=== PATIENT | male | born 1950 | race Caucasian/White ===

== ENCOUNTER 2018-06-09 20:38 | Inpatient (IN) | payer OTHER ==
[2018-06-09] MEDS ORDERED: SODIUM CHLORIDE 1,000 ML IV STA (20:58)
[2018-06-09] MEDS ORDERED: ONDANSETRON 4 MG/2 ML VIAL IVPUSH ONE (20:58)
--- NOTE | 2018-06-09 21:10 | PDOC ---
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 He states the pain started suddenly, is located generally to his low abdomen, and radiates to his lower back. He also c/o sweating, nausea , vomiting. He denies fever, diarrhea, chest pain, shortness of breath. Allergies - NKDA Admits to nicotine use. Admits to social etoh use. Denies every day etoh use. Denies illicit drug use. Past History - Past Medical History Allergies/Adverse Reactions: Allergies Allergy/AdvReac Type Severity Reaction Status Date / Time No Known Allergies Allergy Verified 06/09/18 20:56 - Suicide/Smoking/Psychosocial Hx Smoking History: Never smoked Have you smoked in the past 12 months: No Information on smoking cessation initiated: No Hx Alcohol Use: No Drug/Substance Use Hx: No Review of Systems - Review of Systems Able to Perform ROS?: Yes Comments:: 06/09/18 22:18 General: admits to sweats. denies fever, chills, generalized weakness. HEENT: denies sore throat, rhinorrhea, ear pain. Heart: denies chest pain, palpitations, syncope, lower extremity swelling, diaphoresis. Respiratory: denies shortness of breath, cough, sputum production, hematemesis. Abdomen: admits to abdominal pain, nausea, vomiting. denies diarrhea, constipation, blood in stool. : denies dysuria, increased urinary frequency, hematuria, urinary incontinence , flank pain. Back: admits to back pain. denies flank pain. Musculoskeletal: denies joint pain, muscle pain, joint swelling. Neurological: denies headache, dizziness, numbness, tingling, weakness. Skin: denies rash, laceration, abrasion. *Physical Exam - Vital Signs Last Vital Signs Temp Pulse Resp BP Pulse Ox 97.7 F 88 22 182/90 97 06/09/18 20:53 06/09/18 20:53 06/09/18 20:53 06/09/18 20:53 06/09/18 20:53 - Physical Exam Comments: 06/09/18 22:19 Appearance: appears in pain. actively vomiting. HEENT: head is normocephalic, atraumatic. EOMI. PERRLA. Neck: supple. Full ROM. Heart: regular rhythm. no murmurs, rubs or gallops. No pericardial friction rub. Lungs: clear to auscultation bilaterally. no crackles, rhonchi or wheezing. no stridor. Abdomen: soft. portuberant. generalized tenderness to palpation. umbilical hernia present, will reduce. normal bowel sounds. no rebound, guarding, masses. Back: CVA tenderness negative bilaterally. Extremities: Peripheral pulses intact and equal. No lower extremity edema. Neurological: Alert. Oriented x3. CN 2-12 grossly intact. Moves all four extremities. Heart Score/ECG Review - ECG Impressions Comment:: 06/10/18 01:02 Rate 84. Regular rhythm. Normal axis. Inferolateral ischemia, new as compared to EKG 04/11/18. ED Treatment Course - LABORATORY CBC & Chemistry Diagram: 06/09/18 21:51 06/09/18 21:51 Medical Decision Making - Medical Decision Making 06/09/18 22:19 67 year old male with PMH HTN, HLD, DM presenting to ED for lower abdominal pain starting today associated with N/V and diaphoresis. Pt actively vomiting, diaphoretic and appears in pain upon presentation. Morphine and Zofran ordered. Initial Vital Signs Temp Pulse Resp BP Pulse Ox 97.7 F 88 22 182/90 97 06/09/18 20:53 06/09/18 20:53 06/09/18 20:53 06/09/18 20:53 06/09/18 20:53 Afebrile. No tachycardia. Hypertensive. Pending labs, CT, EKG. 06/09/18 22:35 WBC 11.1 Cr 1.5 Electrolytes normal. 06/09/18 22:46 Lactate 3.6 Lipase normal Cardiac enzymes normal. 06/09/18 23:53 Pt reassessed. States he is feeling better. Pending UA. 06/09/18 23:56 CT report - 3 mm stone in the right UVJ, obstructing, mild right hydronephrosis. Flomax ordered. 06/10/18 00:41 UA 1+ blood, no evidence of UTI. Repeat lactate 2.2. 06/10/18 00:57 EKG shows inferolateral ischemic changes. ASA ordered. Repeat troponin ordered. Pt will be admitted for obstructive uropathy, lactic acidosis and inferolateral ischemic EKG changes. 06/10/18 01:12 I spoke with the admitting team, who states Dr. Umanzor will take over care for the patient. 06/10/18 04:04 Repeat Troponin negative. *DC/Admit/Observation/Transfer Diagnosis at time of Disposition: Nephrolithiasis - Discharge Dispostion Condition at time of disposition: Fair Decision to Admit order: Yes - Referrals - Patient Instructions - Post Discharge Activity
[2018-06-09] MEDS ORDERED: morphine CARPU-JECT 4 MG/1 ML DISP.SYRIN IVPUSH ONE ×2 (21:28→21:42)
[2018-06-09] MEDS ORDERED: MORPHINE SULFATE 2 MG/ML VIAL ONE (21:44)
[2018-06-09] MEDS ORDERED: morphine SULFATE 4 MG/ML VIAL ONE (21:44)
[2018-06-09] MEDS ORDERED: ONDANSETRON 4 MG/2 ML VIAL ONE (21:44)
[2018-06-09 22:05] LABS: BASO % 0.5 % (0-2.0); EOS % 0.7 % (0-4.5); HEMOGLOBIN 16.3 GM/dL (11.7-16.9); LYMPH % 21.9 % (8-40); MCH 33.2 pg (25.7-33.7); MEAN CELL VOLUME 97.5 fl (80-96); MEAN PLT VOLUME 9.1 fl (7.5-11.1); MONO % 7.4 % (3.8-10.2); NEUT % 69.5 % (42.8-82.8); PLATELET COUNT 239 K/MM3 (134-434); RBC 4.92 M/mm3 (4.00-5.60); RDW 13.8 % (11.9-15.9); WHITE BLOOD COUNT 11.1 K/mm3 (4.0-10.0)
[2018-06-09 22:20] LABS: INR 0.98 (0.83-1.09); PROTHROMBIN TIME (PATIENT) 11.1 SEC (9.7-13.0)
[2018-06-09 22:23] LABS: ACTIVATED PTT 22.6 SECONDS (25.2-36.5)
[2018-06-09 22:29] LABS: ALBUMIN 4.5 g/dl (3.4-5.0); ALK PHOS 79 U/L (45-117); AMYLASE 17 U/L (25-115); ANION GAP 10 MMOL/L (8-16); BILIRUBIN,TOTAL 0.4 mg/dL (0.2-1.0); BLOOD UREA NITROGEN 18 mg/dL (7-18); CALCIUM 9.1 mg/dL (8.5-10.1); CHLORIDE 107 mmol/L (98-107); CO2 23 mmol/L (21-32); CREATININE 1.5 mg/dL (0.7-1.3); GLUCOSE,RANDOM 140 mg/dL (74-106); LIPASE 184 U/L (73-393); POTASSIUM 3.9 mmol/L (3.5-5.1); SGOT/AST 17 U/L (15-37); SGPT/ALT 23 U/L (12-78); SODIUM 140 mmol/L (136-145); TOT PROT 8.6 g/dl (6.4-8.2)
--- NOTE | 2018-06-09 23:52 | PDOC ---
Attending Attestation - HPI HPI: 06/10/18 00:10 Patient is a 67 year old male with a significant past medical history of DM, HTN , HLD who presents to the ED with complaints of superpubic pain that began earlier today. Patient reports experiencing sudden superpubic pain that he states radiates to his lower back bilaterally and has increased in intensity over time, prompting him to come into the ED for further evaluation. He reports experiencing associated symptoms of nausea, vomiting, abdominal distention, and increased sweating. Denies chest pain, Sob. Denies contact with sick individuals, out of state travelling. Denies fevers, chills. Denies dysuria, hematuria. Denies constipation, diarrhea. Denies any other symptoms. Allergies: None Social history: No smoking. No illicit drugs. No alcohol. Surgical history: None PMD: None - Physicial Exam PE: 06/10/18 00:10 GENERAL: +Diaphoretic. +Acute distress. Awake, alert, and fully oriented, HEAD: No signs of trauma EYES: PERRLA, EOMI, sclera anicteric, conjunctiva clear ENT: Auricles normal inspection, hearing grossly normal, nares patent, oropharynx clear without exudates. Moist mucosa NECK: Normal ROM, supple, no lymphadenopathy, JVD, or masses LUNGS: Breath sounds equal, clear to auscultation bilaterally. No wheezes, and no crackles HEART: Regular rate and rhythm, normal S1 and S2, no murmurs, rubs or gallops ABDOMEN: +Left lower quadrant tenderness. +superpubic tenderness. +Right lower quadrant tenderness. +CVA tenderness. +Reducible umbilical hernia. Soft, normoactive bowel sounds. No guarding, no rebound. EXTREMITIES: Normal range of motion, no edema. No clubbing or cyanosis. No cords, erythema, or tenderness NEUROLOGICAL: Cranial nerves II through XII grossly intact. Normal speech, normal gait SKIN: Warm, Dry, normal turgor, no rashes or lesions noted. <Venu Escobar - Last Filed: 06/10/18 00:10> - Resident Resident Name: Rachael Henderson - ED Attending Attestation I have performed the following: I have examined & evaluated the patient, The case was reviewed & discussed with the resident, I agree w/resident's findings & plan, Exceptions are as noted - Medical Decision Making 06/09/18 23:50 67yo male with acute onset of abd pain - lower abd and R flank -pt colicky pain -pt with n/v -pt denies trauma -has an umbilical hernia that is reducible -pt is diaphoretic upon arrival -concern for renal colic -bedside ultrasound shows hydro to R kidney -2 iv lines placed, labs sent -will medicate for nausea and pain and will obtain ct abd/pelvis 06/09/18 23:56 pt with 3mm stone at R UVJ causing mod hydro to R pending ua will add flomax pain improved 06/10/18 00:52 new ekg changes will add trop to labs 06/10/18 00:52 repeat lactate is much improved however given ekg changes and acute amount of pain when presenting/obs uropathy will place in obs for further eval pt agrees to stay for further eval 06/10/18 01:23 trop negative repeat pending resident discussed the case with JIL who accepts the patient to service <Barbara Butts - Last Filed: 06/10/18 01:24> Heart Score/ECG Review - ECG Intrepretation Comment:: 06/10/18 00:51 sinus at 84, nl axis, st depression and t wave inversions to inferiolateral which are new compared to old ekg from 04/27 <Barbara Butts - Last Filed: 06/10/18 01:24>
[2018-06-09] MEDS ORDERED: TAMSULOSIN HCL 0.4 MG CAP.ER.24H (FP) PO ONE (23:56)
[2018-06-10 00:24] LABS: URINE APPEARANCE CLEAR; URINE BILIRUBIN NEGATIVE (<2.0 mg/dL); URINE COLOR STRAW; URINE GLUCOSE (UA) NEGATIVE (NEGATIVE); URINE KETONE NEGATIVE (NEGATIVE); URINE LEUK ESTERASE NEGATIVE (NEGATIVE); URINE NITRITE NEGATIVE (NEGATIVE); URINE PROTEIN NEGATIVE (NEGATIVE); URINE UROBILINOGEN NEGATIVE mg/dL (0.2-1.0)
[2018-06-10 00:39] LABS: EPI CELLS RARE /HPF (FEW); URINE MUCUS RARE
[2018-06-10] MEDS ORDERED: ASPIRIN 81 MG CHEWABLE TABLETS PO ONE (00:50)
[2018-06-10] MEDS ORDERED: TAMSULOSIN HCL 0.4 MG CAP.ER.24H (FP) ONE (00:51)
[2018-06-10] MEDS ORDERED: ASPIRIN 325 MG TABLET ONE (01:17)
--- NOTE | 2018-06-10 02:21 | PN ---
Teaching Attending Note Name of Resident: Checo Bolanos ATTENDING PHYSICIAN STATEMENT I saw and evaluated the patient. I reviewed the resident's note and discussed the case with the resident. I agree with the resident's findings and plan as documented. SUBJECTIVE: Patient is a 67 year old male with PMH DM, HTN, HLD presenting to ER for lower abdominal pain starting today. He states the pain started suddenly, is located generally to his low abdomen, and radiates to his lower back. He also has sweating, nausea, vomiting. He denies fever, diarrhea, chest pain, shortness of breath. CT abdomen shows obstructing right kidney stone on UPJ and hydronephrosis. OBJECTIVE: Alert and in pain Vital Signs Period Temp Pulse Resp BP Sys/Alfonso Pulse Ox Last 24 Hr 97.7 F 88 22 182/90 97 HEENT: No Jaundice, eye redness or discharge, PERRLA, EOMI. Normocephalic, atraumatic. External ears are normal and hearing is grossly intact. No nasal discharge. Neck: Supple, nontender. No palpable adenopathy or thyromegaly. No JVD Chest: Good effort. Clear to auscultation and percussion. Heart: Regular. No S3, rub or murmur Abdomen: Not distended, soft, diffuse tenderness and no HSM. No rebound or guarding. Normoactive bowel sounds. Ext: Peripheral pulses intact. No leg edema. Skin: Warm and dry. No petechiae, rash or ecchymosis. Neuro: Alert. Oriented x3. CN 2-12 grossly intact. Sensation grossly intact in all four extremities and DTR are symmetric. Abnormal Lab Results 06/09/18 06/09/18 06/09/18 21:51 21:51 21:51 WBC 11.1 H MCV 97.5 H PTT (Actin FS) 22.6 L Creatinine 1.5 H Random Glucose 140 H Lactic Acid Total Protein 8.6 H Total Amylase 17 L Urine Blood 06/09/18 06/10/18 06/10/18 21:51 00:10 00:10 WBC MCV PTT (Actin FS) Creatinine Random Glucose Lactic Acid 3.6 H* 2.2 H* Total Protein Total Amylase Urine Blood 1+ H ASSESSMENT AND PLAN: 1. Right Renal Colic with obstruction and hydronephrosis - Will use IV morphine to control pain, give flomax, IV NS and trend lactic acid level. Though no pyuria, will treat with IV Rocephin pending blood and urine culture. Urology consult. Will obtain serial EKG and troponin to rule out ACS in view of significant T wave changes on EKG. 2. DM - For now, we will hold the home diabetes drugs and implement sliding scale insulin regimen. Provide comprehensive diabetes care with patient teaching and counseling about the importance of euglycemia, eye care and foot care. 3. Obesity - Will provide patient all the necessary assistance , counseling and positive reinforcement to facilitate weight loss. Consult life skills coach. 4. DVT prophylaxis - Heparin 5000u sq tid. 5. Advance directives - Full code
[2018-06-10] MEDS ORDERED: ACETAMINOPHEN 325 MG TABLET (FP) PO PRN (03:58)
[2018-06-10] MEDS ORDERED: MORPHINE SULFATE 2 MG/ML VIAL IVPUSH PRN (03:58)
[2018-06-10] MEDS ORDERED: SODIUM CHLORIDE 0.45% 1,000 ML IV SCH (04:00)
--- NOTE | 2018-06-10 04:33 | HP ---
CHIEF COMPLAINT: Lower abdominal pain PCP: Adore Gonzalez NP HISTORY OF PRESENT ILLNESS: The patient is Turkish speaking; the following history was obtained with the help of [employer] stretch box tender #[id number]. The patient is a 67 yo m w/ PMH DM, HTN, HLD who was BIBEMS from home c/o a 1 day history of lower abdominal and back pain associated with nausea and vomiting. The patient states that he experienced an acute onset lower abdominal pain starting today. The pain is dull, 10/10 in intensity, and radiates to the center of his lower back. There are no exacerbating or alleviating factors. This pain was associated with nausea and NBNB vomiting. Patient stats he had a similar episode of this pain 1 year ago and was treated at [facility]. The patient states that he was given pain pills and sent home. The patient's medical record also shows multiple encouters for overactive bladder, but the patient does not recall these. Patient denies chest pain, SOB, fevers, chills, diarrhea, constipation. ER course was notable for: (1) Trop negative x2 (2) EKG showing ST depressions in 2, 3 avf; t wave inversions in lateral and anterior leads (3) Recent Travel: none PAST MEDICAL HISTORY: see HPI PAST SURGICAL HISTORY: Hernia repair right shoulder Social History: Smoking: denies Alcohol: denies Drugs: denies Family History: non-contributory Allergies No Known Allergies Allergy (Verified 06/09/18 20:56) HOME MEDICATIONS: REVIEW OF SYSTEMS CONSTITUTIONAL: Absent: fever, chills, diaphoresis, generalized weakness, malaise, loss of appetite, weight change HEENT: Absent: rhinorrhea, nasal congestion, throat pain, throat swelling, difficulty swallowing, mouth swelling, ear pain, eye pain, visual changes CARDIOVASCULAR: Absent: chest pain, syncope, palpitations, irregular heart rate, lightheadedness , peripheral edema RESPIRATORY: Absent: cough, shortness of breath, dyspnea with exertion, orthopnea, wheezing, stridor, hemoptysis GASTROINTESTINAL: Absent: abdominal distension, diarrhea, constipation, melena, hematochezia GENITOURINARY: Absent: dysuria, frequency, urgency, hesitancy, hematuria, genital pain MUSCULOSKELETAL: Absent: myalgia, arthralgia, joint swelling, back pain, neck pain SKIN: Absent: rash, itching, pallor HEMATOLOGIC/IMMUNOLOGIC: Absent: easy bleeding, easy bruising, lymphadenopathy, frequent infections ENDOCRINE: Absent: unexplained weight gain, unexplained weight loss, heat intolerance, cold intolerance NEUROLOGIC: Absent: headache, focal weakness or paresthesias, dizziness, unsteady gait, seizure, mental status changes, bladder or bowel incontinence PSYCHIATRIC: Absent: anxiety, depression, suicidal or homicidal ideation, hallucinations. PHYSICAL EXAMINATION Vital Signs - 24 hr 06/09/18 06/10/18 20:53 04:09 Temperature 97.7 F Pulse Rate 88 Pulse Rate [ 77 Right] Respiratory 22 18 Rate Blood Pressure 182/90 Blood Pressure 157/86 [Left Arm] O2 Sat by Pulse 97 99 Oximetry (%) GENERAL: Awake, alert, and fully oriented, in no acute distress. HEAD: Normal with no signs of trauma. EYES: Pupils equal, round and reactive to light, extraocular movements intact, sclera anicteric, conjunctiva clear. No lid lag. EARS, NOSE, THROAT: Ears normal, nares patent, oropharynx clear without exudates. Moist mucous membranes. NECK: Normal range of motion, supple without lymphadenopathy, JVD, or masses. LUNGS: Breath sounds equal, clear to auscultation bilaterally. No wheezes, and no crackles. No accessory muscle use. HEART: Regular rate and rhythm, normal S1 and S2 without murmur, rub or gallop. ABDOMEN: Soft, nontender, not distended, normoactive bowel sounds, no guarding, no rebound, no masses. Suprapubic tenderness elicited. Right sided CVA present. LOWER EXTREMITIES: 2+ pulses, warm, well-perfused. No calf tenderness. No peripheral edema. NEUROLOGICAL: Cranial nerves II-X intact. Normal speech. PSYCHIATRIC: Cooperative. Good eye contact. Appropriate mood and affect. SKIN: Warm, dry, normal turgor, no rashes or lesions noted, normal capillary refill. Laboratory Results - last 24 hr 06/09/18 06/09/18 06/09/18 21:51 21:51 21:51 WBC 11.1 H RBC 4.92 Hgb 16.3 Hct 48.0 MCV 97.5 H MCH 33.2 MCHC 34.0 RDW 13.8 Plt Count 239 MPV 9.1 Absolute Neuts (auto) 7.7 Neutrophils % 69.5 Lymphocytes % 21.9 Monocytes % 7.4 Eosinophils % 0.7 Basophils % 0.5 Nucleated RBC % 0 PT with INR 11.10 INR 0.98 PTT (Actin FS) 22.6 L Sodium 140 Potassium 3.9 Chloride 107 Carbon Dioxide 23 Anion Gap 10 BUN 18 Creatinine 1.5 H Creat Clearance w eGFR 46.82 Random Glucose 140 H Lactic Acid Calcium 9.1 Total Bilirubin 0.4 AST 17 ALT 23 Alkaline Phosphatase 79 Creatine Kinase 112 Troponin I < 0.02 Total Protein 8.6 H Albumin 4.5 Total Amylase 17 L Lipase 184 Urine Color Urine Appearance Urine pH Ur Specific Warren Urine Protein Urine Glucose (UA) Urine Ketones Urine Blood Urine Nitrite Urine Bilirubin Urine Urobilinogen Ur Leukocyte Esterase Urine WBC (Auto) Urine RBC (Auto) Ur Epithelial Cells Urine Mucus Anti-A Titer Blood Type Antibody Screen 06/09/18 06/09/18 06/10/18 21:51 21:51 00:10 WBC RBC Hgb Hct MCV MCH MCHC RDW Plt Count MPV Absolute Neuts (auto) Neutrophils % Lymphocytes % Monocytes % Eosinophils % Basophils % Nucleated RBC % PT with INR INR PTT (Actin FS) Sodium Potassium Chloride Carbon Dioxide Anion Gap BUN Creatinine Creat Clearance w eGFR Random Glucose Lactic Acid 3.6 H* Calcium Total Bilirubin AST ALT Alkaline Phosphatase Creatine Kinase Troponin I Total Protein Albumin Total Amylase Lipase Urine Color Straw Urine Appearance Clear Urine pH 6.0 Ur Specific Warren 1.010 Urine Protein Negative Urine Glucose (UA) Negative Urine Ketones Negative Urine Blood 1+ H Urine Nitrite Negative Urine Bilirubin Negative Urine Urobilinogen Negative Ur Leukocyte Esterase Negative Urine WBC (Auto) <1 Urine RBC (Auto) 1 Ur Epithelial Cells Rare Urine Mucus Rare Anti-A Titer Cancelled Blood Type B POSITIVE Antibody Screen Negative 06/10/18 06/10/18 00:10 01:20 WBC RBC Hgb Hct MCV MCH MCHC RDW Plt Count MPV Absolute Neuts (auto) Neutrophils % Lymphocytes % Monocytes % Eosinophils % Basophils % Nucleated RBC % PT with INR INR PTT (Actin FS) Sodium Potassium Chloride Carbon Dioxide Anion Gap BUN Creatinine Creat Clearance w eGFR Random Glucose Lactic Acid 2.2 H* Calcium Total Bilirubin AST ALT Alkaline Phosphatase Creatine Kinase 110 Troponin I < 0.02 Total Protein Albumin Total Amylase Lipase Urine Color Urine Appearance Urine pH Ur Specific Warren Urine Protein Urine Glucose (UA) Urine Ketones Urine Blood Urine Nitrite Urine Bilirubin Urine Urobilinogen Ur Leukocyte Esterase Urine WBC (Auto) Urine RBC (Auto) Ur Epithelial Cells Urine Mucus Anti-A Titer Blood Type Antibody Screen ASSESSMENT/PLAN: The patient is a 67 yo f w/ PMH HTN, DM, HLD who came into the ED c/o a 1 day hx of lower abdominal pain found to have nephrolithiasis and EKG changes #Nephrolithiasis -urology consult; patient saw Dr. De León in the past -Flomax .4mg daily -pain control w/ tylenol and morphine -1/2 NS @ 75 x 1 bag. 1/2 NS to minimize hypertensive effect of saline -will give 1g rochephin daily due to patient's CVA tenderness, blood on UA and mild leukocytosis #EKG changes -troponin negative x2 -trend 3rd trop -rpt EKG -Echo in AM -cardiology consult #lactic acidosis -possibly 2/2 renal infection -downtrending; WNL on most recent rpt -c/w 1/2 NS @ 75 #RACHANA vs CKD -no baseline -c/w hydration and trend BMP in AM #HTN -patient unsure of home medications -start Norvasc 5mg in AM -verify home medications in AM #DM -BGM, ISS ACHS -verify home DM regimen in AM #FEN -1/2 NS @ 75 x 1bag -lytes WNL, monitor -diabetic diet #Prophy -heparin SQ 5k units TID #dispo -admit tele -medications to be verified with patient pharmacy Visit type - Emergency Visit Emergency Visit: Yes ED Registration Date: 06/10/18 Care time: The patient presented to the Emergency Department on the above date and was hospitalized for further evaluation of their emergent condition. - New Patient This patient is new to me today: Yes Date on this admission: 06/10/18 - Critical Care Critical Care patient: No Hospitalist Screening - Colonoscopy Questionnaire Colonoscopy Questionnaire: Colonoscopy Questionnaire - Patient: 50 - 75 years old and never had a screening colonoscopy: Unknown History of colon or rectal polyps, or CA: Unknown History of IBD, Crohn's disease or UC: Unknown History of abdominal radiation therapy as a child: Unknown - Relative: 1 with colon or rectal CA, or polyps at age 60 or younger: Unknown Colon or rectal CA diagnosed at age 45 or younger: Unknown Multiple relatives with colon or rectal CA: Unknown - Outcome: Screening Result: Negative Screen
[2018-06-10] MEDS ORDERED: CEFTRIAXONE 1 GM in DEXTROSE 5%-WATER - 50 ML IVPB SCH (05:00)
[2018-06-10] MEDS ORDERED: CEFTRIAXONE 1 GM in DEXTROSE 5%-WATER 100 ML IVPB SCH (05:15)
[2018-06-10] MEDS ORDERED: DEXTROSE 5%-WATER 100 ML IVPB ONE (05:20)
[2018-06-10] MEDS ORDERED: cefTRIAXone SODIUM 1 GM VIAL ONE (05:20)
[2018-06-10] MEDS: HEPARIN NA (PORCINE) 5,000 UNITS/ML 1ML VIAL SQ SCH ×2 (05:29→15:47)
[2018-06-10 05:55] VITALS: BMI 34.0
[2018-06-10] MEDS: INSULIN SLIDING SCALE (NOVOLOG) 1 VIAL SQ SCH ×3 (06:30→15:47)
[2018-06-10 07:40] LABS: BASO % 0.4 % (0-2.0); EOS % 0.4 % (0-4.5); HEMATOCRIT 43.5 % (35.4-49); HEMOGLOBIN 14.7 GM/dL (11.7-16.9); LYMPH % 25.6 % (8-40); MCH 32.6 pg (25.7-33.7); MCHC 33.8 g/dl (32.0-35.9); MEAN CELL VOLUME 96.7 fl (80-96); MEAN PLT VOLUME 9.1 fl (7.5-11.1); MONO % 8.3 % (3.8-10.2); NEUT % 65.3 % (42.8-82.8); PLATELET COUNT 200 K/MM3 (134-434); RDW 13.8 % (11.9-15.9); WHITE BLOOD COUNT 11.4 K/mm3 (4.0-10.0)
[2018-06-10 07:54] LABS: INR 1.03 (0.83-1.09); PROTHROMBIN TIME (PATIENT) 11.6 SEC (9.7-13.0)
--- NOTE | 2018-06-10 08:17 | CONSULT ---
Consult - text type - Consultation Consultation Note: cc: right hydronephrosis with acute renal insufficiency hpi: patient with history of right flank pain with nausea and vomiting. Patient denies fever or gross hematuria. Patient is in severe distress when the colic occurs. PE afeb; vss abd-right CVAT with suprapubic tendernesss ct scan reviewed creatinine 1.5 imp acute renal insufficiency right hydronephrosis with obstructing right ureteral stone plan patient is emergently scheduled for a right ureteroscopic stone basketing and stent
[2018-06-10 08:29] LABS: ANION GAP 11 MMOL/L (8-16); BLOOD UREA NITROGEN 16 mg/dL (7-18); CALCIUM 8.7 mg/dL (8.5-10.1); CHLORIDE 106 mmol/L (98-107); CO2 24 mmol/L (21-32); GLUCOSE,RANDOM 156 mg/dL (74-106); POTASSIUM 3.8 mmol/L (3.5-5.1); SODIUM 141 mmol/L (136-145)
[2018-06-10 08:35] LABS: CREATININE 0.9 mg/dL (0.7-1.3)
[2018-06-10] MEDS ORDERED: amLODIPine BESYLATE 5 MG TABLET (FP) PO SCH (10:00)
[2018-06-10] MEDS: TAMSULOSIN HCL 0.4 MG CAP.ER.24H (FP) PO SCH ×2 (10:20→17:35)
--- NOTE | 2018-06-10 10:29 | EKG ---
Test Reason : Blood Pressure : / mmHG Vent. Rate : 084 BPM Atrial Rate : 084 BPM P-R Int : 170 ms QRS Dur : 090 ms QT Int : 394 ms P-R-T Axes : 058 041 221 degrees QTc Int : 465 ms NORMAL SINUS RHYTHM PROLONGED QT ABNORMAL ECG NO PREVIOUS ECGS AVAILABLE Confirmed by GADIEL CHAMBERS, MIGUELINA ([id number]) on 06/10/2018 10:29:11 AM Referred By: Confirmed By:MIGUELINA RAMESH MD
--- NOTE | 2018-06-10 11:12 | CON.CARD ---
Cardiology Consult (text) - Consultation Consultation Note: cc: abd pain hpi: 67 m hx htn, dm, here with abd pain. Started yesterday, pain in lower abd and lower back. No cp, sob, palps, dizzy, loc, pnd, orthopnea, le edema. No hx hrt dz. Treating for kidney stone. ECG with twis so cardio eval requested. pmh: per hpi psh: hernia repair social: ex tob fam: no premature cad or scd ros: per hpi; no nvd samuel vision changes gib muscle pain wt loss meds: Current Medications Generic Name Dose Route Start Last Admin Trade Name Freq PRN Reason Stop Dose Admin Acetaminophen 650 mg 06/10/18 03:58 Tylenol - PO Q4H PRN PAIN LEVEL 1-5 Amlodipine Besylate 5 mg 06/10/18 10:00 06/10/18 10:20 Norvasc - PO Not Given DAILY MARICEL Heparin Sodium (Porcine) 5,000 unit 06/10/18 06:00 06/10/18 05:29 Heparin - SQ 5,000 unit TID MARICEL Administration Sodium Chloride 1,000 mls @ 75 mls/hr 06/10/18 04:00 06/10/18 05:28 1/2 Normal Saline IV 06/10/18 17:19 75 mls/hr ASDIR MARICEL Administration Ceftriaxone Sodium 1 gm/ 100 mls @ 100 mls/hr 06/10/18 05:15 06/10/18 05:29 Dextrose IVPB 100 mls/hr DAILY MARICEL Administration Protocol Insulin Aspart 1 vial 06/10/18 07:00 06/10/18 06:30 Novolog Vial Sliding Scale - SQ Not Given ACHS MARICEL Protocol Morphine Sulfate 2 mg 06/10/18 03:58 Morphine Sulfate IVPUSH Q4H PRN PAIN LEVEL 6-10 Tamsulosin HCl 0.4 mg 06/10/18 08:30 06/10/18 10:20 Flomax - PO Not Given DAILY@0830 MARICEL pe: Vital Signs Period Temp Pulse Resp BP Sys/Alfonso Pulse Ox Last 24 Hr 97.7 F-98.2 F 62-88 18-22 134-182/86-90 97-99 nad no jvd rrr s1 s2 no mrg cta bl nl eff aaox3 no le e/c/c abd nd pos bs, mild lower quadrant tenderness bl no jaundice diaphoresis pos dp pt Laboratory Last Values WBC 11.4 K/mm3 (4.0-10.0) H 06/10/18 06:28 RBC 4.50 M/mm3 (4.00-5.60) 06/10/18 06:28 Hgb 14.7 GM/dL (11.7-16.9) 06/10/18 06:28 Hct 43.5 % (35.4-49) 06/10/18 06:28 MCV 96.7 fl (80-96) H 06/10/18 06:28 MCH 32.6 pg (25.7-33.7) 06/10/18 06: MCHC 33.8 g/dl (32.0-35.9) 06/10/18 06:28 RDW 13.8 % (11.9-15.9) 06/10/18 06:28 Plt Count 200 K/MM3 (134-434) 06/10/18 06:28 MPV 9.1 fl (7.5-11.1) 06/10/18 06:28 Absolute Neuts (auto) 7.5 K/mm3 (1.5-8.0) 06/10/18 06:28 Neutrophils % 65.3 % (42.8-82.8) 06/10/18 06: Lymphocytes % 25.6 % (8-40) 06/10/18 06: Monocytes % 8.3 % (3.8-10.2) 06/10/18 06: Eosinophils % 0.4 % (0-4.5) 06/10/18 06: Basophils % 0.4 % (0-2.0) 06/10/18 06:28 Nucleated RBC % 0 % (0-0) 06/10/18 06:28 PT with INR 11.60 SEC (9.7-13.0) 06/10/18 06:28 INR 1.03 (0.83-1.09) 06/10/18 06:28 PTT (Actin FS) 22.6 SECONDS (25.2-36.5) L 06/09/18 21:51 Sodium 141 mmol/L (136-145) 06/10/18 06:28 Potassium 3.8 mmol/L (3.5-5.1) 06/10/18 06:28 Chloride 106 mmol/L (98-107) 06/10/18 06:28 Carbon Dioxide 24 mmol/L (21-32) 06/10/18 06:28 Anion Gap 11 MMOL/L (8-16) 06/10/18 06:28 BUN 16 mg/dL (7-18) 06/10/18 06:28 Creatinine 0.9 mg/dL (0.7-1.3) 06/10/18 06:28 Creat Clearance w eGFR > 60 (>60) 06/10/18 06:28 POC Glucometer 148 UNITS (80-120) 06/10/18 05:38 Random Glucose 156 mg/dL (74-106) H 06/10/18 06:28 Lactic Acid 1.5 mmol/L (0.0-2.0) 06/10/18 04:30 Calcium 8.7 mg/dL (8.5-10.1) 06/10/18 06:28 Phosphorus 3.0 mg/dL (2.5-4.9) 06/10/18 06:28 Magnesium 2.0 mg/dL (1.8-2.4) 06/10/18 06:28 Total Bilirubin 0.4 mg/dL (0.2-1.0) 06/09/18 21:51 AST 17 U/L (15-37) 06/09/18 21:51 ALT 23 U/L (12-78) 06/09/18 21:51 Alkaline Phosphatase 79 U/L (45-117) 06/09/18 21:51 Creatine Kinase 110 IU/L (39-308) 06/10/18 01:20 Troponin I < 0.02 ng/ml (0.00-0.05) 06/10/18 06:28 Total Protein 8.6 g/dl (6.4-8.2) H 06/09/18 21:51 Albumin 4.5 g/dl (3.4-5.0) 06/09/18 21:51 Total Amylase 17 U/L (25-115) L 06/09/18 21:51 Lipase 184 U/L (73-393) 06/09/18 21:51 Urine Color Straw 06/10/18 00:10 Urine Appearance Clear 06/10/18 00:10 Urine pH 6.0 (5.0-8.0) 06/10/18 00:10 Ur Specific [place] 1.010 (1.001-1.035) 06/10/18 00:10 Urine Protein Negative (NEGATIVE) 06/10/18 00:10 Urine Glucose (UA) Negative (NEGATIVE) 06/10/18 00:10 Urine Ketones Negative (NEGATIVE) 06/10/18 00:10 Urine Blood 1+ (NEGATIVE) H 06/10/18 00:10 Urine Nitrite Negative (NEGATIVE) 06/10/18 00:10 Urine Bilirubin Negative (<2.0 mg/dL) 06/10/18 00:10 Urine Urobilinogen Negative mg/dL (0.2-1.0) 06/10/18 00:10 Ur Leukocyte Esterase Negative (NEGATIVE) 06/10/18 00:10 Urine WBC (Auto) <1 /hpf (3-5) 06/10/18 00:10 Urine RBC (Auto) 1 /hpf (0-3) 06/10/18 00:10 Ur Epithelial Cells Rare /HPF (FEW) 06/10/18 00:10 Urine Mucus Rare 06/10/18 00:10 Anti-A Titer Cancelled 06/09/18 21:51 Blood Type B POSITIVE 06/10/18 06:28 Antibody Screen Negative 06/09/18 21:51 tele: sr ecg: sr, lvh with repol changes a/p: 67 m hx htn, dm, here with abd pain. kidney stone: -plans per htn: -elevated, cont norvasc 5, increase to 10 if needed abnl ecg: -appears to be lvh with repol changes, likely from htn -bp control -bal negative -check echo -cont tele for now
--- NOTE | 2018-06-10 11:42 | ECHO ---
Name: JORGE ALBERTO SPRINGER Exam:Adult Echocardiogram Study Date: 06/10/2018 08:51 AM Age: 67 yrs Reason For Study: EKG Changes Height: 66 in Weight: 220 lb BSA: 2.1 m2 MMode/2D Measurements & Calculations IVSd: 1.4 cm Ao root diam: 2.5 cm LVIDd: 4.2 cm LA dimension: 3.3 cm LVIDs: 3.0 cm LVPWd: 1.2 cm EDV(Teich): 77.7 ml ESV(Teich): 34.2 ml Doppler Measurements & Calculations MV E max brennan: 54.8 cm/sec Med Peak E' Brennan: 5.0 cm/sec MV A max brennan: 78.6 cm/sec Med E/e': 11.0 MV E/A: 0.70 Lat Peak E' Brennan: 8.9 cm/sec MV dec time: 0.32 sec Lat E/e': 6.1 Procedure A two-dimensional transthoracic echocardiogram with color flow and Doppler was performed. Left Ventricle There is moderate concentric left ventricular hypertrophy. The left ventricular ejection fraction is normal. E/A reversal consistent with but not diagnostic of poor LV compliance. The left ventricular wall macho on is normal. Atria Normal left and right atrial size and function. Mitral Valve There is mild mitral valve thickening. There is no mitral valve stenosis. There is mild mitral regurg itation. Tricuspid Valve There is mild tricuspid valve thickening. There is no tricuspid stenosis. There was insufficient TR d etected to calculate RV systolic pressure. Aortic Valve The aortic valve is normal in structure and function. No hemodynamically significant valvular aortic stenosis. No aortic regurgitation is present. Pulmonic Valve The pulmonic valve is not well visualized. There is no pulmonic valvular stenosis. There is no pulmon ic valvular regurgitation. Great Vessels The aortic root is normal size. Pericardium/Pleura There is no pericardial effusion. Interpretation Summary The left ventricular ejection fraction is normal. The left ventricular wall motion is normal. There is moderate concentric left ventricular hypertrophy. E/A reversal consistent with but not diagnostic of poor LV compliance There is mild mitral regurgitation. There was insufficient TR detected to calculate RV systolic pressure. MD Can Plaza 06/10/2018 11:42 AM
--- NOTE | 2018-06-10 12:55 | EKG ---
Test Reason : Blood Pressure : / mmHG Vent. Rate : 069 BPM Atrial Rate : 069 BPM P-R Int : 166 ms QRS Dur : 090 ms QT Int : 416 ms P-R-T Axes : 062 042 217 degrees QTc Int : 445 ms NORMAL SINUS RHYTHM POSSIBLE LEFT ATRIAL ENLARGEMENT LEFT VENTRICULAR HYPERTROPHY ABNORMAL ECG WHEN COMPARED WITH ECG OF 10-JUN-2018 00:46, NO SIGNIFICANT CHANGE WAS FOUND Confirmed by GADIEL CHAMBERS, MIGUELINA ([id number]) on 06/10/2018 12:55:27 PM Referred By: Confirmed By:MIGUELINA RAMESH MD
[2018-06-10] MEDS ORDERED: amLODIPine BESYLATE 5 MG TABLET (FP) PO ONE (15:26)
--- NOTE | 2018-06-10 15:31 | PN ---
Teaching Attending Note Name of Resident: Reema Cortez ATTENDING PHYSICIAN STATEMENT I saw and evaluated the patient. I reviewed the resident's note and discussed the case with the resident. I agree with the resident's findings and plan as documented with exceptions below. SUBJECTIVE: Patient seen and examined, denies any right flank or back pain or urinary symptoms. No new fevers/chills, nausea or vomiting. No chest pain noted. OBJECTIVE: Vital Signs Period Temp Pulse Resp BP Sys/Alfonso Pulse Ox Last 24 Hr 97.7 F-98.2 F 62-88 18-22 134-182/86-90 97-99 Intake & Output 06/07/18 06/08/18 06/09/18 06/10/18 23:59 23:59 23:59 23:59 Intake Total 275 Output Total 0 Balance 275 Weight 220 lb 211 lb General: lying in bed in no acute distress Abdomen:soft, obese, NT throughout, no RLQ or Right CVA tenderness, no voluntary or involuntary guarding or rigidity Chest CTAB, no rales or wheezing Home Medications Medication Instructions Recorded Alfuzosin HCl [Alfuzosin HCl ER] 10 mg PO DAILY 06/10/18 Amlodipine Besylate/Benazepril 1 cap PO DAILY 06/10/18 [Lotrel 10-20 mg Capsule] Aspirin 81 mg PO DAILY 06/10/18 Aspirin [Ecotrin] 81 mg PO DAILY 06/10/18 Atorvastatin Calcium [Lipitor] 20 mg PO DAILY 06/10/18 Gabapentin 300 mg PO DAILY 06/10/18 Gemfibrozil 600 mg PO BID 06/10/18 Ibuprofen 800 mg PO TID 06/10/18 Levothyroxine [Synthroid -] 75 mcg PO DAILY 06/10/18 Metformin HCl [Glucophage] 500 mg PO DAILY 06/10/18 Montelukast Sodium [Singulair] 10 mg PO DAILY 06/10/18 Tamsulosin HCl [Flomax] 0.4 mg PO DAILY 06/10/18 Valsartan [Diovan] 40 mg PO DAILY 06/10/18 Active Medications Acetaminophen (Tylenol -) 650 mg PO Q4H PRN PRN Reason: PAIN LEVEL 1-5 Amlodipine Besylate (Norvasc -) 10 mg PO DAILY [facility] Heparin Sodium (Porcine) (Heparin -) 5,000 unit SQ TID [facility] Last Admin: 06/10/18 05:29 Dose: 5,000 unit Sodium Chloride (1/2 Normal Saline) 1,000 mls @ 75 mls/hr IV ASDIR [facility] Stop: 06/10/18 17:19 Last Admin: 06/10/18 05:28 Dose: 75 mls/hr Ceftriaxone Sodium 1 gm/ (Dextrose) 100 mls @ 100 mls/hr IVPB DAILY [facility]; Protocol Last Admin: 06/10/18 05:29 Dose: 100 mls/hr Insulin Aspart (Novolog Vial Sliding Scale -) 1 vial SQ ACHS [facility]; Protocol Last Admin: 06/10/18 12:49 Dose: Not Given Morphine Sulfate (Morphine Sulfate) 2 mg IVPUSH Q4H PRN PRN Reason: PAIN LEVEL 6-10 Tamsulosin HCl (Flomax -) 0.4 mg PO DAILY@0830 [facility] Last Admin: 06/10/18 10:20 Dose: Not Given Laboratory Results - last 24 hr 06/09/18 06/09/18 06/09/18 21:51 21:51 21:51 WBC 11.1 H RBC 4.92 Hgb 16.3 Hct 48.0 MCV 97.5 H MCH 33.2 MCHC 34.0 RDW 13.8 Plt Count 239 MPV 9.1 Absolute Neuts (auto) 7.7 Neutrophils % 69.5 Lymphocytes % 21.9 Monocytes % 7.4 Eosinophils % 0.7 Basophils % 0.5 Nucleated RBC % 0 PT with INR 11.10 INR 0.98 PTT (Actin FS) 22.6 L Sodium 140 Potassium 3.9 Chloride 107 Carbon Dioxide 23 Anion Gap 10 BUN 18 Creatinine 1.5 H Creat Clearance w eGFR 46.82 POC Glucometer Random Glucose 140 H Lactic Acid Calcium 9.1 Phosphorus Magnesium Total Bilirubin 0.4 AST 17 ALT 23 Alkaline Phosphatase 79 Creatine Kinase 112 Troponin I < 0.02 Total Protein 8.6 H Albumin 4.5 Total Amylase 17 L Lipase 184 Urine Color Urine Appearance Urine pH Ur Specific [place] Urine Protein Urine Glucose (UA) Urine Ketones Urine Blood Urine Nitrite Urine Bilirubin Urine Urobilinogen Ur Leukocyte Esterase Urine WBC (Auto) Urine RBC (Auto) Ur Epithelial Cells Urine Mucus Anti-A Titer Blood Type Antibody Screen 06/09/18 06/09/18 06/10/18 21:51 21:51 00:10 WBC RBC Hgb Hct MCV MCH MCHC RDW Plt Count MPV Absolute Neuts (auto) Neutrophils % Lymphocytes % Monocytes % Eosinophils % Basophils % Nucleated RBC % PT with INR INR PTT (Actin FS) Sodium Potassium Chloride Carbon Dioxide Anion Gap BUN Creatinine Creat Clearance w eGFR POC Glucometer Random Glucose Lactic Acid 3.6 H* Calcium Phosphorus Magnesium Total Bilirubin AST ALT Alkaline Phosphatase Creatine Kinase Troponin I Total Protein Albumin Total Amylase Lipase Urine Color Straw Urine Appearance Clear Urine pH 6.0 Ur Specific [place] 1.010 Urine Protein Negative Urine Glucose (UA) Negative Urine Ketones Negative Urine Blood 1+ H Urine Nitrite Negative Urine Bilirubin Negative Urine Urobilinogen Negative Ur Leukocyte Esterase Negative Urine WBC (Auto) <1 Urine RBC (Auto) 1 Ur Epithelial Cells Rare Urine Mucus Rare Anti-A Titer Cancelled Blood Type B POSITIVE Antibody Screen Negative 06/10/18 06/10/18 06/10/18 00:10 01:20 04:30 WBC RBC Hgb Hct MCV MCH MCHC RDW Plt Count MPV Absolute Neuts (auto) Neutrophils % Lymphocytes % Monocytes % Eosinophils % Basophils % Nucleated RBC % PT with INR INR PTT (Actin FS) Sodium Potassium Chloride Carbon Dioxide Anion Gap BUN Creatinine Creat Clearance w eGFR POC Glucometer Random Glucose Lactic Acid 2.2 H* 1.5 Calcium Phosphorus Magnesium Total Bilirubin AST ALT Alkaline Phosphatase Creatine Kinase 110 Troponin I < 0.02 Total Protein Albumin Total Amylase Lipase Urine Color Urine Appearance Urine pH Ur Specific [place] Urine Protein Urine Glucose (UA) Urine Ketones Urine Blood Urine Nitrite Urine Bilirubin Urine Urobilinogen Ur Leukocyte Esterase Urine WBC (Auto) Urine RBC (Auto) Ur Epithelial Cells Urine Mucus Anti-A Titer Blood Type Antibody Screen 06/10/18 06/10/18 06/10/18 05:38 06:28 06:28 WBC 11.4 H RBC 4.50 Hgb 14.7 Hct 43.5 MCV 96.7 H MCH 32.6 MCHC 33.8 RDW 13.8 Plt Count 200 MPV 9.1 Absolute Neuts (auto) 7.5 Neutrophils % 65.3 Lymphocytes % 25.6 Monocytes % 8.3 Eosinophils % 0.4 Basophils % 0.4 Nucleated RBC % 0 PT with INR INR PTT (Actin FS) Sodium Potassium Chloride Carbon Dioxide Anion Gap BUN Creatinine Creat Clearance w eGFR POC Glucometer 148 Random Glucose Lactic Acid Calcium Phosphorus Magnesium Total Bilirubin AST ALT Alkaline Phosphatase Creatine Kinase Troponin I Total Protein Albumin Total Amylase Lipase Urine Color Urine Appearance Urine pH Ur Specific [place] Urine Protein Urine Glucose (UA) Urine Ketones Urine Blood Urine Nitrite Urine Bilirubin Urine Urobilinogen Ur Leukocyte Esterase Urine WBC (Auto) Urine RBC (Auto) Ur Epithelial Cells Urine Mucus Anti-A Titer Blood Type B POSITIVE Antibody Screen 06/10/18 06/10/18 06/10/18 06:28 06:28 11:59 WBC RBC Hgb Hct MCV MCH MCHC RDW Plt Count MPV Absolute Neuts (auto) Neutrophils % Lymphocytes % Monocytes % Eosinophils % Basophils % Nucleated RBC % PT with INR 11.60 INR 1.03 PTT (Actin FS) Sodium 141 Potassium 3.8 Chloride 106 Carbon Dioxide 24 Anion Gap 11 BUN 16 Creatinine 0.9 Creat Clearance w eGFR > 60 POC Glucometer 124 Random Glucose 156 H Lactic Acid Calcium 8.7 Phosphorus 3.0 Magnesium 2.0 Total Bilirubin AST ALT Alkaline Phosphatase Creatine Kinase Troponin I < 0.02 Total Protein Albumin Total Amylase Lipase Urine Color Urine Appearance Urine pH Ur Specific [place] Urine Protein Urine Glucose (UA) Urine Ketones Urine Blood Urine Nitrite Urine Bilirubin Urine Urobilinogen Ur Leukocyte Esterase Urine WBC (Auto) Urine RBC (Auto) Ur Epithelial Cells Urine Mucus Anti-A Titer Blood Type Antibody Screen CT A/P results reviewed ASSESSMENT AND PLAN: 67 yom with PMHx of NIDDM, HTN, HLD, obesity, hypothyroidism, admitted with obstructive uropathy -Right hydronephrosis with 4 mm right UVJ stone -Lactic acidosis, suspect hypovolumia, low suspicion for sepsis, resolved -RACHANA, hypovolumia vs from obstructive uropathy -ABnormal EKG, suspect LVH with strain pattern -Uncontrolled HTN, suspect pain related -NIDDM -HLD -Obesity Plan: Urology input noted, for cystoscopy with stent placement today. Ceftriaxone day 2, follow up urine cultures. Lactic acidosis/RACHANA resolved. EKG consistent with LVH with strain pattern. 2D echo noted. Cardiology input appreciated. BP control and outpatient follow up. hold metformin, ISS, diabetic diet. amlodipoine. Resume ARB/ACEI in 24hours if renal function stable. DVTPPX heparin Dispo d/c in 24 hours pending urological intervention if no new concerns.
[2018-06-10] MEDS ORDERED: ONDANSETRON 4 MG/2 ML VIAL IVPUSH PRN (16:22)
[2018-06-10] MEDS ORDERED: oxyCODONE HCL 5 MG TABLET PO PRN (16:22)
[2018-06-10] MEDS ORDERED: PROMETHAZINE HCL 25 MG/1 ML VIAL IVPUSH PRN (16:22)
[2018-06-10] MEDS ORDERED: LACTATED RINGERS SOLUTION 1,000 ML IV SCH (16:30)
--- NOTE | 2018-06-10 16:48 | OP ---
Operative Note - Note: Operative Date: 06/10/18 Pre-Operative Diagnosis: right ureteral stone Operation: cystoscopy/right retrograde pyelogram/right ureteroscopic stone basketing and stent placement Findings: 5 mm right ureteral stone Post-Operative Diagnosis: Same as Pre-op Surgeon: Sal De León Anesthesia: General Specimens Removed: right ureteral stone Drains & Tubes with Location: 04/03 right ureteral stent Operative Report Dictated: Yes
[2018-06-10] MEDS ORDERED: KETOROLAC TROMETHAMINE 30 MG/1 ML VIAL ONE (17:00)
[2018-06-10 17:15] VITALS: TEMP 97.9
[2018-06-10 17:51] VITALS: PULSE 68
--- NOTE | 2018-06-10 17:53 | PN ---
Physical Exam: SUBJECTIVE: Patient seen and examined at bedside this morning. Patient reports abdominal and flank pain that has lessened since his admission. Patient underwent emergency right ureteroscopic stone basketing and stent. OBJECTIVE: Vital Signs Period Temp Pulse Resp BP Sys/Alfonso Pulse Ox Last 24 Hr 97.7 F-98.2 F 62-88 12-22 134-182/85-95 96-99 GENERAL: The patient is awake, alert, and fully oriented, in no acute distress. HEAD: Normal with no signs of trauma. EYES: PERRLA, EOMI, sclera anicteric, conjunctiva clear. ENT: Ears normal, nares patent, oropharynx clear without exudates, moist mucous membranes. NECK: Trachea midline, full range of motion, supple. LUNGS: Breath sounds equal, clear to auscultation bilaterally. HEART: Regular rate and rhythm, S1, S2 without murmur, rub or gallop. ABDOMEN: Soft, +suprapubic tenderness, +R CVA tenderness, nondistended, normoactive bowel sounds. EXTREMITIES: 2+ pulses, warm, well-perfused, no edema. NEUROLOGICAL: Cranial nerves II through XII grossly intact. Normal speech, gait not observed. PSYCH: Normal mood, normal affect. SKIN: Warm, dry, normal turgor, no rashes or lesions noted Laboratory Results - last 24 hr 06/09/18 06/09/18 06/09/18 21:51 21:51 21:51 WBC 11.1 H RBC 4.92 Hgb 16.3 Hct 48.0 MCV 97.5 H MCH 33.2 MCHC 34.0 RDW 13.8 Plt Count 239 MPV 9.1 Absolute Neuts (auto) 7.7 Neutrophils % 69.5 Lymphocytes % 21.9 Monocytes % 7.4 Eosinophils % 0.7 Basophils % 0.5 Nucleated RBC % 0 PT with INR 11.10 INR 0.98 PTT (Actin FS) 22.6 L Sodium 140 Potassium 3.9 Chloride 107 Carbon Dioxide 23 Anion Gap 10 BUN 18 Creatinine 1.5 H Creat Clearance w eGFR 46.82 POC Glucometer Random Glucose 140 H Lactic Acid Calcium 9.1 Phosphorus Magnesium Total Bilirubin 0.4 AST 17 ALT 23 Alkaline Phosphatase 79 Creatine Kinase 112 Troponin I < 0.02 Total Protein 8.6 H Albumin 4.5 Total Amylase 17 L Lipase 184 Urine Color Urine Appearance Urine pH Ur Specific [place] Urine Protein Urine Glucose (UA) Urine Ketones Urine Blood Urine Nitrite Urine Bilirubin Urine Urobilinogen Ur Leukocyte Esterase Urine WBC (Auto) Urine RBC (Auto) Ur Epithelial Cells Urine Mucus Anti-A Titer Blood Type Antibody Screen 06/09/18 06/09/18 06/10/18 21:51 21:51 00:10 WBC RBC Hgb Hct MCV MCH MCHC RDW Plt Count MPV Absolute Neuts (auto) Neutrophils % Lymphocytes % Monocytes % Eosinophils % Basophils % Nucleated RBC % PT with INR INR PTT (Actin FS) Sodium Potassium Chloride Carbon Dioxide Anion Gap BUN Creatinine Creat Clearance w eGFR POC Glucometer Random Glucose Lactic Acid 3.6 H* Calcium Phosphorus Magnesium Total Bilirubin AST ALT Alkaline Phosphatase Creatine Kinase Troponin I Total Protein Albumin Total Amylase Lipase Urine Color Straw Urine Appearance Clear Urine pH 6.0 Ur Specific [place] 1.010 Urine Protein Negative Urine Glucose (UA) Negative Urine Ketones Negative Urine Blood 1+ H Urine Nitrite Negative Urine Bilirubin Negative Urine Urobilinogen Negative Ur Leukocyte Esterase Negative Urine WBC (Auto) <1 Urine RBC (Auto) 1 Ur Epithelial Cells Rare Urine Mucus Rare Anti-A Titer Cancelled Blood Type B POSITIVE Antibody Screen Negative 06/10/18 06/10/18 06/10/18 00:10 01:20 04:30 WBC RBC Hgb Hct MCV MCH MCHC RDW Plt Count MPV Absolute Neuts (auto) Neutrophils % Lymphocytes % Monocytes % Eosinophils % Basophils % Nucleated RBC % PT with INR INR PTT (Actin FS) Sodium Potassium Chloride Carbon Dioxide Anion Gap BUN Creatinine Creat Clearance w eGFR POC Glucometer Random Glucose Lactic Acid 2.2 H* 1.5 Calcium Phosphorus Magnesium Total Bilirubin AST ALT Alkaline Phosphatase Creatine Kinase 110 Troponin I < 0.02 Total Protein Albumin Total Amylase Lipase Urine Color Urine Appearance Urine pH Ur Specific [place] Urine Protein Urine Glucose (UA) Urine Ketones Urine Blood Urine Nitrite Urine Bilirubin Urine Urobilinogen Ur Leukocyte Esterase Urine WBC (Auto) Urine RBC (Auto) Ur Epithelial Cells Urine Mucus Anti-A Titer Blood Type Antibody Screen 06/10/18 06/10/18 06/10/18 05:38 06:28 06:28 WBC 11.4 H RBC 4.50 Hgb 14.7 Hct 43.5 MCV 96.7 H MCH 32.6 MCHC 33.8 RDW 13.8 Plt Count 200 MPV 9.1 Absolute Neuts (auto) 7.5 Neutrophils % 65.3 Lymphocytes % 25.6 Monocytes % 8.3 Eosinophils % 0.4 Basophils % 0.4 Nucleated RBC % 0 PT with INR INR PTT (Actin FS) Sodium Potassium Chloride Carbon Dioxide Anion Gap BUN Creatinine Creat Clearance w eGFR POC Glucometer 148 Random Glucose Lactic Acid Calcium Phosphorus Magnesium Total Bilirubin AST ALT Alkaline Phosphatase Creatine Kinase Troponin I Total Protein Albumin Total Amylase Lipase Urine Color Urine Appearance Urine pH Ur Specific [place] Urine Protein Urine Glucose (UA) Urine Ketones Urine Blood Urine Nitrite Urine Bilirubin Urine Urobilinogen Ur Leukocyte Esterase Urine WBC (Auto) Urine RBC (Auto) Ur Epithelial Cells Urine Mucus Anti-A Titer Blood Type B POSITIVE Antibody Screen 06/10/18 06/10/18 06/10/18 06:28 06:28 11:59 WBC RBC Hgb Hct MCV MCH MCHC RDW Plt Count MPV Absolute Neuts (auto) Neutrophils % Lymphocytes % Monocytes % Eosinophils % Basophils % Nucleated RBC % PT with INR 11.60 INR 1.03 PTT (Actin FS) Sodium 141 Potassium 3.8 Chloride 106 Carbon Dioxide 24 Anion Gap 11 BUN 16 Creatinine 0.9 Creat Clearance w eGFR > 60 POC Glucometer 124 Random Glucose 156 H Lactic Acid Calcium 8.7 Phosphorus 3.0 Magnesium 2.0 Total Bilirubin AST ALT Alkaline Phosphatase Creatine Kinase Troponin I < 0.02 Total Protein Albumin Total Amylase Lipase Urine Color Urine Appearance Urine pH Ur Specific [place] Urine Protein Urine Glucose (UA) Urine Ketones Urine Blood Urine Nitrite Urine Bilirubin Urine Urobilinogen Ur Leukocyte Esterase Urine WBC (Auto) Urine RBC (Auto) Ur Epithelial Cells Urine Mucus Anti-A Titer Blood Type Antibody Screen Active Medications Generic Name Dose Route Start Last Admin Trade Name Freq PRN Reason Stop Dose Admin Acetaminophen 650 mg 06/10/18 03:58 Tylenol - PO Q4H PRN PAIN LEVEL 1-5 Amlodipine Besylate 10 mg 06/11/18 10:00 06/10/18 17:30 Norvasc - PO 10 mg DAILY MARICEL Administration Fentanyl 25 mcg 06/10/18 16:22 Sublimaze Injection - IVPUSH [id number] PRN PAIN-PACU ORDER X 4 DOSES ONLY Heparin Sodium (Porcine) 5,000 unit 06/10/18 06:00 06/10/18 15:47 Heparin - SQ Not Given TID [facility] Ceftriaxone Sodium 1 gm/ 100 mls @ 100 mls/hr 06/10/18 05:15 06/10/18 05:29 Dextrose IVPB 100 mls/hr DAILY [facility] Administration Protocol Lactated Ringer's 1,000 mls @ 75 mls/hr 06/10/18 16:30 Lactated Ringers Solution IV ASDIR [facility] Insulin Aspart 1 vial 06/10/18 07:00 06/10/18 15:47 Novolog Vial Sliding Scale - SQ Not Given ACHS [facility] Protocol Morphine Sulfate 2 mg 06/10/18 03:58 Morphine Sulfate IVPUSH Q4H PRN PAIN LEVEL 6-10 Ondansetron HCl 4 mg 06/10/18 16:22 Zofran Injection IVPUSH Q6H PRN NAUSEA AND/OR VOMITING Oxycodone HCl 10 mg 06/10/18 16:22 Roxicodone - PO 06/11/18 16:21 Q4H PRN PAIN LEVEL 6-10 Tamsulosin HCl 0.4 mg 06/10/18 08:30 06/10/18 17:35 Flomax - PO 0.4 mg DAILY@0830 [facility] Administration CBC, BMP 06/10/18 06:28 06/10/18 06:28 ASSESSMENT/PLAN: Patient is a 67 year old male with past medical history of HTN, DM and HLD who came into the ED c/o sudden, severe, 10/10 dull lower abdominal pain that started 1 day ago. #Ureterolithiasis, right -CT abdomen/pelvis showed hydronephrosis and hydroureter with a 4mm stone in the distal right UVJ; mild hepatomegaly; supraumbilical hernia with fat -Dr. De León consult appreciated. Patient is s/p right ureterscopic stone basketing and stent -Continue Ceftriaxone 1 gm, on day 2 -Urine cultures pending #RACHANA -likely 2/2 to DHN and ureterolithiasis -no baseline - #Lactic acidosis #Hypertension #DM #?Hypothyroidism #FEN #Prophylaxis #Disposition ASSESSMENT AND PLAN: 67 yom with PMHx of NIDDM, HTN, HLD, obesity, hypothyroidism, admitted with obstructive uropathy -Right hydronephrosis with 4 mm right UVJ stone -Lactic acidosis, suspect hypovolumia, low suspicion for sepsis, resolved -RACHANA, hypovolumia vs from obstructive uropathy -ABnormal EKG, suspect LVH with strain pattern -Uncontrolled HTN, suspect pain related -NIDDM -HLD -Obesity Plan: Urology input noted, for cystoscopy with stent placement today. Ceftriaxone day 2, follow up urine cultures. Lactic acidosis/RACHANA resolved. EKG consistent with LVH with strain pattern. 2D echo noted. Cardiology input appreciated. BP control and outpatient follow up. hold metformin, ISS, diabetic diet. amlodipoine. Resume ARB/ACEI in 24hours if renal function stable. DVTPPX heparin Dispo d/c in 24 hours pending urological intervention if no new concerns.
[2018-06-10 18:19] VITALS: BP 158/90
--- NOTE | 2018-06-10 18:41 | DS ---
Physical Exam: SUBJECTIVE: Patient seen and examined at bedside. He is complaining of lower abdominal pain and right flank pain that has improved since he was admitted. Pt underwent emergency right ureteroscopic stone basketing and stent. OBJECTIVE: Vital Signs Period Temp Pulse Resp BP Sys/Alfonso Pulse Ox Last 24 Hr 97.7 F-98.2 F 62-88 12-22 134-182/85-95 96-99 PHYSICAL EXAM GENERAL: The patient is awake, alert, and fully oriented, in no acute distress. HEAD: Normal with no signs of trauma. EYES: PERRLA, EOMI, sclera anicteric, conjunctiva clear. ENT: Ears normal, nares patent, oropharynx clear without exudates, moist mucous membranes. NECK: Trachea midline, full range of motion, supple. LUNGS: Breath sounds equal, clear to auscultation bilaterally. HEART: Regular rate and rhythm, S1, S2 without murmur, rub or gallop. ABDOMEN: Soft, nontender, nondistended, normoactive bowel sounds. EXTREMITIES: 2+ pulses, warm, well-perfused, no edema. NEUROLOGICAL: Cranial nerves II through XII grossly intact. Normal speech, gait not observed. PSYCH: Normal mood, normal affect. SKIN: Warm, dry, normal turgor, no rashes or lesions noted. LABS Laboratory Results - last 24 hr 06/09/18 06/09/18 06/09/18 21:51 21:51 21:51 WBC 11.1 H RBC 4.92 Hgb 16.3 Hct 48.0 MCV 97.5 H MCH 33.2 MCHC 34.0 RDW 13.8 Plt Count 239 MPV 9.1 Absolute Neuts (auto) 7.7 Neutrophils % 69.5 Lymphocytes % 21.9 Monocytes % 7.4 Eosinophils % 0.7 Basophils % 0.5 Nucleated RBC % 0 PT with INR 11.10 INR 0.98 PTT (Actin FS) 22.6 L Sodium 140 Potassium 3.9 Chloride 107 Carbon Dioxide 23 Anion Gap 10 BUN 18 Creatinine 1.5 H Creat Clearance w eGFR 46.82 POC Glucometer Random Glucose 140 H Lactic Acid Calcium 9.1 Phosphorus Magnesium Total Bilirubin 0.4 AST 17 ALT 23 Alkaline Phosphatase 79 Creatine Kinase 112 Troponin I < 0.02 Total Protein 8.6 H Albumin 4.5 Total Amylase 17 L Lipase 184 Urine Color Urine Appearance Urine pH Ur Specific [place] Urine Protein Urine Glucose (UA) Urine Ketones Urine Blood Urine Nitrite Urine Bilirubin Urine Urobilinogen Ur Leukocyte Esterase Urine WBC (Auto) Urine RBC (Auto) Ur Epithelial Cells Urine Mucus Anti-A Titer Blood Type Antibody Screen 06/09/18 06/09/18 06/10/18 21:51 21:51 00:10 WBC RBC Hgb Hct MCV MCH MCHC RDW Plt Count MPV Absolute Neuts (auto) Neutrophils % Lymphocytes % Monocytes % Eosinophils % Basophils % Nucleated RBC % PT with INR INR PTT (Actin FS) Sodium Potassium Chloride Carbon Dioxide Anion Gap BUN Creatinine Creat Clearance w eGFR POC Glucometer Random Glucose Lactic Acid 3.6 H* Calcium Phosphorus Magnesium Total Bilirubin AST ALT Alkaline Phosphatase Creatine Kinase Troponin I Total Protein Albumin Total Amylase Lipase Urine Color Straw Urine Appearance Clear Urine pH 6.0 Ur Specific [place] 1.010 Urine Protein Negative Urine Glucose (UA) Negative Urine Ketones Negative Urine Blood 1+ H Urine Nitrite Negative Urine Bilirubin Negative Urine Urobilinogen Negative Ur Leukocyte Esterase Negative Urine WBC (Auto) <1 Urine RBC (Auto) 1 Ur Epithelial Cells Rare Urine Mucus Rare Anti-A Titer Cancelled Blood Type B POSITIVE Antibody Screen Negative 06/10/18 06/10/18 06/10/18 00:10 01:20 04:30 WBC RBC Hgb Hct MCV MCH MCHC RDW Plt Count MPV Absolute Neuts (auto) Neutrophils % Lymphocytes % Monocytes % Eosinophils % Basophils % Nucleated RBC % PT with INR INR PTT (Actin FS) Sodium Potassium Chloride Carbon Dioxide Anion Gap BUN Creatinine Creat Clearance w eGFR POC Glucometer Random Glucose Lactic Acid 2.2 H* 1.5 Calcium Phosphorus Magnesium Total Bilirubin AST ALT Alkaline Phosphatase Creatine Kinase 110 Troponin I < 0.02 Total Protein Albumin Total Amylase Lipase Urine Color Urine Appearance Urine pH Ur Specific [place] Urine Protein Urine Glucose (UA) Urine Ketones Urine Blood Urine Nitrite Urine Bilirubin Urine Urobilinogen Ur Leukocyte Esterase Urine WBC (Auto) Urine RBC (Auto) Ur Epithelial Cells Urine Mucus Anti-A Titer Blood Type Antibody Screen 06/10/18 06/10/18 06/10/18 05:38 06:28 06:28 WBC 11.4 H RBC 4.50 Hgb 14.7 Hct 43.5 MCV 96.7 H MCH 32.6 MCHC 33.8 RDW 13.8 Plt Count 200 MPV 9.1 Absolute Neuts (auto) 7.5 Neutrophils % 65.3 Lymphocytes % 25.6 Monocytes % 8.3 Eosinophils % 0.4 Basophils % 0.4 Nucleated RBC % 0 PT with INR INR PTT (Actin FS) Sodium Potassium Chloride Carbon Dioxide Anion Gap BUN Creatinine Creat Clearance w eGFR POC Glucometer 148 Random Glucose Lactic Acid Calcium Phosphorus Magnesium Total Bilirubin AST ALT Alkaline Phosphatase Creatine Kinase Troponin I Total Protein Albumin Total Amylase Lipase Urine Color Urine Appearance Urine pH Ur Specific [place] Urine Protein Urine Glucose (UA) Urine Ketones Urine Blood Urine Nitrite Urine Bilirubin Urine Urobilinogen Ur Leukocyte Esterase Urine WBC (Auto) Urine RBC (Auto) Ur Epithelial Cells Urine Mucus Anti-A Titer Blood Type B POSITIVE Antibody Screen 06/10/18 06/10/18 06/10/18 06:28 06:28 11:59 WBC RBC Hgb Hct MCV MCH MCHC RDW Plt Count MPV Absolute Neuts (auto) Neutrophils % Lymphocytes % Monocytes % Eosinophils % Basophils % Nucleated RBC % PT with INR 11.60 INR 1.03 PTT (Actin FS) Sodium 141 Potassium 3.8 Chloride 106 Carbon Dioxide 24 Anion Gap 11 BUN 16 Creatinine 0.9 Creat Clearance w eGFR > 60 POC Glucometer 124 Random Glucose 156 H Lactic Acid Calcium 8.7 Phosphorus 3.0 Magnesium 2.0 Total Bilirubin AST ALT Alkaline Phosphatase Creatine Kinase Troponin I < 0.02 Total Protein Albumin Total Amylase Lipase Urine Color Urine Appearance Urine pH Ur Specific [place] Urine Protein Urine Glucose (UA) Urine Ketones Urine Blood Urine Nitrite Urine Bilirubin Urine Urobilinogen Ur Leukocyte Esterase Urine WBC (Auto) Urine RBC (Auto) Ur Epithelial Cells Urine Mucus Anti-A Titer Blood Type Antibody Screen HOSPITAL COURSE: Date of Admission:06/10/18 Date of Discharge: 06/10/18 The patient is a 67 yo m w/ PMH DM, HTN, HLD who was BIBEMS from home c/o a 1 day history of lower abdominal and back pain associated with nausea and vomiting. The patient states that he experienced an acute onset lower abdominal pain starting today. The pain is dull, 10/10 in intensity, and radiates to the center of his lower back. There are no exacerbating or alleviating factors. This pain was associated with nausea and NBNB vomiting. Patient stats he had a similar episode of this pain 1 year ago and was treated at [facility]. The patient states that he was given pain pills and sent home. The patient's medical record also shows multiple encouters for overactive bladder, but the patient does not recall these. Patient denies chest pain, SOB, fevers, chills, diarrhea, constipation. Upon admission, CT scan was done which reveal hydronephrosis and hydroureter with a 4 mm stone in the distal right UVJ. Urologist was consulted and it was decided that patient undergo emergency right ureteroscopic stone basketing and stent. Pt tolerated operation well and was discharged on the same hospital day with instructions to follow up with Dr. De León. Initial labs revealed patient had RACHANA and elevated lactic acid. IV fluids were given and renal function and lactic acid returned to normal levels. On discharge , Metformin was held with instructions that patient follow-up with PCP. Minutes to complete discharge: 45 Discharge Summary Reason For Visit: CALCULUS OF KIDNEY;OBSTRUCTIVE UROPATHY;ACUTE ELEC Condition: Good - Instructions Diet, Activity, Other Instructions: Drink plenty of fluids tylenol/advil/motrin for pain follow-up in one week with Dr. Villafuerte. HOld metformin till next doctor visit. Advise home blood sugar monitoring before meals 2-3 times daily till next doctor visit next week. Notify doctor if < 75 or persistently > 140 or any reading > 300 noted. Continue your BP medications as before. Following blood work in 1 week with your doctor BMP (Basic metabolic panel) for kidney function check Call 911 or come to ED if any new fevers, chills, pain, urinary symptoms or new concerns. Referrals: Sal De León MD [Staff Physician] - 1 Week Disposition: HOME - Home Medications Comprehensive Discharge Medication List: Ambulatory Orders Alfuzosin HCl [Alfuzosin HCl ER] 10 mg PO DAILY 06/10/18 Amlodipine Besylate/Benazepril [Lotrel 10-20 mg Capsule] 1 cap PO DAILY Aspirin 81 mg PO DAILY 06/10/18 Aspirin [Ecotrin] 81 mg PO DAILY 06/10/18 Atorvastatin Calcium [Lipitor] 20 mg PO DAILY 06/10/18 Gabapentin 300 mg PO DAILY 06/10/18 Gemfibrozil 600 mg PO BID 06/10/18 Ibuprofen 800 mg PO TID 06/10/18 Levothyroxine [Synthroid -] 75 mcg PO DAILY 06/10/18 Montelukast Sodium [Singulair] 10 mg PO DAILY 06/10/18 Tamsulosin HCl [Flomax] 0.4 mg PO DAILY 06/10/18 Valsartan [Diovan] 40 mg PO DAILY 06/10/18 This patient is new to me today: Yes Date on this admission: 06/11/18 Emergency Visit: Yes ED Registration Date: 06/10/18 Care time: The patient presented to the Emergency Department on the above date and was hospitalized for further evaluation of their emergent condition. Critical Care patient: No - Discharge Referral Referred to [facility] Med [facility].: No
--- NOTE | 2018-06-11 06:56 | OP ---
DATE OF OPERATION: 06/10/2018 PREOPERATIVE DIAGNOSES: Right hydronephrosis and right ureteral stone and acute renal insufficiency. POSTOPERATIVE DIAGNOSES: Right hydronephrosis and right ureteral stone and acute renal insufficiency. PROCEDURE: Cystoscopy, right retrograde pyelogram, right ureteroscopic stone basketing and right ureteral stent placement. ATTENDING: Ritu Rodrigues MD ANESTHESIA: General. OPERATION: Patient brought in the operating room, placed in the supine position on the operating room table. The patient has a history of acute renal insufficiency with an obstructing right stone with significant hydronephrosis. The patient came in in severe distress. The patient was emergently taken to the operating room in order to avoid renal injury and continued distress to the patient. The patient understands risks and benefits and signs a consent. At this point, the patient is given general anesthesia and placed in the dorsal lithotomy position. Antibiotics were given preoperatively. Patient was prepped and draped in the usual sterile manner. Cystoscopy was performed. The right ureteral orifice appears normal. The retrograde pyelogram shows a filling defect in the distal ureter. A wire is passed proximally. At this point ureteroscopy is performed and the stone is seen. Under direct visualization the stone is basketed and removed. A 6-Bhutanese, 24-cm stent is then placed in the right ureter utilizing the Seldinger technique. No complications are noted. Disposition of the patient is to the recovery room. RITU RODRIGUES M.D. [id number]
[2018-06-11] MEDS ORDERED: amLODIPine BESYLATE 10 MG TABLET (FP) PO SCH (10:00)
--- NOTE | 2018-06-15 09:10 | PATH ---
Surgical Pathology Report Patient Name: JORGE ALBERTO SPRINGER Med. Rec. #: [id number] /Age/Gender: 1950 (Age: 67) / M Account: [id number] Location: 4 W TELEMETRY U Taken: 06/10/2018 Received: 06/14/2018 Reported: 06/15/2018 Physicians: Sal De León PHYSICIAN EMERGENCY DEPT Specimen(s) Received RIGHT LATERAL CALCULI Clinical History Calculus of kidney, obstructive uropathy Final Diagnosis URETERAL STONE, RIGHT, STONE BASKETING: URETERAL STONE. MACROSCOPIC DIAGNOSIS. Electronically Signed Susana Palacio M.D. Gross Description Received fresh labeled "right ureteral stone," is a 0.5 cm in greatest dimension bolivar, irregular calculus which is sent for chemical analysis. 06/14/2018 saudi06/14/2018
[2018-06-21 14:14] LABS: CA OXALATE MONOHYDR. 20 % (.); SIZE 4x3x2 mm (.); WEIGHT 25.2 mg (.)
== END 2018-06-10 19:26 | disposition home or self-care (01) | DRG 669 ==
LOC: JER 20:38 → JERBED 06-10 00:52 → OBSVTOIN 06-10 03:59 → J4W 06-10 04:22
PROVIDERS: ADMIT Internal Medicine; ATTEND Hospitalist
PROC: 0T768DZ Dilation of Right Ureter with Intraluminal Device, Via Natural or Artificial Opening Endoscopic (ICD-10-PCS; 2018-06-10)
PROC: BT1DYZZ Fluoroscopy of Right Kidney, Ureter and Bladder using Other Contrast (ICD-10-PCS; 2018-06-10)
PROC: 0TC68ZZ Extirpation of Matter from Right Ureter, Via Natural or Artificial Opening Endoscopic (ICD-10-PCS; principal; 2018-06-10 16:00)
DX: N13.2 Hydronephrosis with renal and ureteral calculous obstruction (principal); E87.2 Acidosis; E11.9 Type 2 diabetes mellitus without complications; E78.5 Hyperlipidemia, unspecified; I10 Essential (primary) hypertension; E66.9 Obesity, unspecified; R94.31 Abnormal electrocardiogram [ECG] [EKG]; Z79.84 Long term (current) use of oral hypoglycemic drugs; N28.9 Disorder of kidney and ureter, unspecified; Z68.34 Body mass index [BMI] 34.0-34.9, adult
CPT/HCPCS: 36415; 74176-TC; 80048; 80053; 81003; 81015; 82150; 82360; 82550; 82962; 83605; 83690; 83735; 84100; 84484; 85025; 85610; 85730; 86850; 86900; 86901; 87040; 87086; 88300-TC; 93005; 93010; 93306-TC; 94760; 99285-25; G0378; J1644; J7030

== ENCOUNTER → 2019-05-22 | Day surgery (SDC) | payer OTHER ==
[2019-05-19 14:29] VITALS: BMI 35.5
[2019-05-22 08:27] VITALS: BP 153/86; PULSE 78; TEMP 97.8
== END | disposition home or self-care (01) ==
LOC: JASU-SURG 07:20
PROVIDERS: ATTEND Urology
DX: Z53.8 Procedure and treatment not carried out for other reasons (principal)
CPT/HCPCS: 82962

== ENCOUNTER 2019-12-04 05:03 | Day surgery (SDC) | payer OTHER ==
[2019-11-16 19:15] VITALS: BMI 35.2
[2019-12-04] MEDS ORDERED: LIDOCAINE HCL/PF 2% SDV 5ML VIAL ONE (07:54)
[2019-12-04] MEDS ORDERED: MIDAZOLAM HCL 2 MG/2 ML SINGLE DOSE VIAL ONE (07:55)
[2019-12-04] MEDS ORDERED: PROPOFOL 20 ML ONE ×2 (07:55)
--- NOTE | 2019-12-04 09:32 | OP ---
Operative Note - Note: Operative Date: 12/04/19 Pre-Operative Diagnosis: Left renal stone Operation: Left ESWL Findings: 5 mm lower pole left renal stone Post-Operative Diagnosis: Same as Pre-op Surgeon: Sal De León Anesthesia: Fractional Estimated Blood Loss (mls): 0 Drains, Volume Out (mls): 0 Operative Report Dictated: Yes
[2019-12-04 11:27] VITALS: BP 156/85; PULSE 72; TEMP 98
--- NOTE | 2019-12-04 19:43 | OP ---
DATE OF OPERATION: 12/04/2019 PREOPERATIVE DIAGNOSIS: Left renal stone. POSTOPERATIVE DIAGNOSIS: Left renal stone. PROCEDURE: Left extracorporeal shock wave lithotripsy. ATTENDING: Sal Summers MD ANESTHESIA: Fractional. DESCRIPTION OF OPERATION: Patient was brought in the operating room, placed in supine position on the operating room table. Ultrasonography and fluoroscopy were performed. A 5-mm left-sided stone was noted in the lower pole calyx. Anesthesia and preoperative antibiotics were then administered. Next, 2500 impulses at 17 joules of power were administered to the stone. Excellent fragmentation of the stone was noted under real-time ultrasonography and fluoroscopy. No complications were noted. The patient tolerated the procedure very well. Naa [id number]
== END 2019-12-04 11:15 | disposition home or self-care (01) ==
LOC: JASU-SURG 05:03
PROVIDERS: ATTEND Urology
PROC: 0TF4XZZ Fragmentation in Left Kidney Pelvis, External Approach (ICD-10-PCS; principal; 2019-12-04 08:00)
DX: N20.0 Calculus of kidney (principal)
CPT/HCPCS: 82962

== ENCOUNTER 2020-10-07 04:43 | Day surgery (SDC) | payer OTHER ==
[2020-09-30 15:08] VITALS: BMI 35.3
[2020-10-07] MEDS ORDERED: MIDAZOLAM HCL 2 MG/2 ML SINGLE DOSE VIAL ONE (10:31)
[2020-10-07 17:53] VITALS: BP 132/71; PULSE 73; TEMP 97.1
== END 2020-10-07 12:30 | disposition home or self-care (01) ==
LOC: JASU-SURG 04:43
PROVIDERS: ATTEND Urology
PROC: 0TF3XZZ Fragmentation in Right Kidney Pelvis, External Approach (ICD-10-PCS; principal; 2020-10-07 09:30)
DX: N20.0 Calculus of kidney (principal)
CPT/HCPCS: 82962

== ENCOUNTER 2021-05-01 17:06 | Emergency (ER) | payer OTHER ==
[2021-05-01 17:36] VITALS: BP 156/77; PULSE 82; TEMP 97.7; BMI 40.0
[2021-05-01] MEDS ORDERED: KETOROLAC TROMETHAMINE 30 MG/1 ML VIAL IM ONE (18:01)
[2021-05-01] MEDS ORDERED: KETOROLAC TROMETHAMINE 30 MG/1 ML VIAL ONE (18:06)
== END 2021-05-01 18:47 | disposition home or self-care (01) ==
LOC: JER 17:06 → JERFT 17:06
PROC: 3E0233Z Introduction of Anti-inflammatory into Muscle, Percutaneous Approach (ICD-10-PCS; principal; 2021-05-01)
DX: M54.42 Lumbago with sciatica, left side (principal)
CPT/HCPCS: 96372; 99283-25